=== PATIENT | female | born 1950 | race Caucasian/White ===

== ENCOUNTER 2019-03-01 18:52 | Emergency (ER) | payer OTHER ==
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
[2019-03-01] MEDS ORDERED: Sodium Chloride 0.9% 1,000 ML IV ONE (20:08)
[2019-03-01] MEDS ORDERED: Morphine Sulfate 2 mg/mL 1mL Syr IVP STA (20:13)
[2019-03-01] MEDS ORDERED: Morphine Sulfate 2 mg/mL 1mL Syr ONE (20:17)
[2019-03-01 20:40] LABS: URINE SOURCE CLEAN C
[2019-03-01 20:56] LABS: URINE BILIRUBIN NEGATIVE (NEGATIVE); URINE BLOOD SMALL (NEGATIVE); URINE GLUCOSE (UA) NEGATIVE (NEGATIVE); URINE KETONE NEGATIVE (NEGATIVE); URINE LEUKOCYTE ESTERASE NEGATIVE (NEGATIVE); URINE MICROSCOPIC INDICATED? YES; URINE NITRATE NEGATIVE (NEGATIVE); URINE PROTEIN NEGATIVE (NEGATIVE); URINE UROBILINOGEN 0.2 E.U./dL (0.2 - 1.0)
[2019-03-01 21:00] LABS: URINE CLARITY CLEAR (CLEAR); URINE COLOR YELLOW
[2019-03-01 21:01] LABS: URINE BACTERIA 1+ /hpf (NONE SEEN); URINE EPITHELIAL CELLS FEW /lpf (FEW); URINE WBC 0-2 /hpf (0-5)
--- NOTE | 2019-03-02 09:02 | Diagnostic Imaging Report ---
Portable chest x-ray History: Shortness of breath Allowing for portable technique the heart size is normal. No focal pulmonary parenchymal processes. No hilar or mediastinal abnormalities. Impression: No acute abnormalities.
== END 2019-03-01 21:21 | disposition home or self-care (01) ==
LOC: ER 18:52
DX: S20.219A Contusion of unspecified front wall of thorax, initial encounter (principal); V49.49XA Driver injured in collision with other motor vehicles in traffic accident, initial encounter; Y93.89 Activity, other specified; Y92.89 Other specified places as the place of occurrence of the external cause; Y99.8 Other external cause status
CPT/HCPCS: 99284; 96374; 93005; 71045; 84484; 36415; 81001; 82550; J2270; J7030